=== PATIENT | male | born 1975 | race Two or more races ===

== ENCOUNTER → 2025-01-29 | Outpatient (CLI) | payer OTHER, SELFPAY ==
[2025-01-29 13:01] LABS: Hematocrit 45.8 % (40-54); Hemoglobin 15.8 g/dL (13.0-16.5); Immature Granulocytes Count 0.010 X10^3/uL (0.0-0.0); Mean Corp Hgb Conc 34.5 g/dL (32-36); Mean Corpuscular Volume 89.3 fL (80-94); Mean Platelet Vol. 10.1 fl (6.2-12.0); NRBC Flagged by Analyzer 0 % (0-5); Platelet Count 242 K/mm3 (150-450); RBC Distribution Width CV 12.8 % (11.6-14.6); RBC Distribution Width SD 42.2 fl (35.1-43.9); Red Blood Count 5.13 M/mm3 (4.6-6.2); White Blood Count 7.1 K/mm3 (4.4-11.0)
[2025-01-29 13:27] LABS: FOLATES,SERUM (FOLIC ACID) 18.80 ng/mL (4.60-34.80); Vitamin B12 518 pg/mL (180-914); Vitamin D,25 Hydroxy 107.0 ng/mL (30-100)
[2025-02-01 14:09] LABS: Testosterone, % Free 1.86 % (1.50-4.20); Testosterone, Free 18.67 ng/dL (5.00-21.00)
== END | disposition home or self-care (01) ==
PROVIDERS: Referring Provider Nurse Practitioner Family; Visit Provider Nurse Practitioner Family
DX: G40.89 Other seizures (principal); R53.82 Chronic fatigue, unspecified; H93.12 Tinnitus, left ear; R09.82 Postnasal drip; R59.0 Localized enlarged lymph nodes; R06.02 Shortness of breath; M62.9 Disorder of muscle, unspecified; K21.9 Gastro-esophageal reflux disease without esophagitis
CPT/HCPCS: 82306; 82607; 82627; 82746; 84402; 84403; 85025; 82626